=== PATIENT | male | born 1975 | race Caucasian/White ===

== ENCOUNTER → 2019-01-26 | Outpatient (CLI) | payer OTHER ==
--- NOTE | 2019-01-26 08:10 | US ---
EXAMINATION TYPE: US liver DATE OF EXAM: 01/26/2019 COMPARISON: NONE CLINICAL HISTORY: R74.8 Abnormal LFTS. EXAM MEASUREMENTS: Liver Length: 16.0 cm Gallbladder Wall: 0.2 cm CBD: 0.5 cm Right Kidney: 11.5 x 5.1 x 5.2 cm Pancreas: Obscured by bowel gas Liver: Increased attenuation, several hypoechoic areas adjacent to gallbladder and farrukh hepatis pro bable focal fatty sparing. Finding of increased attenuation limits evaluation for hepatic masses. Gallbladder: wnl Evidence for sonographic Espitia's sign: no CBD: wnl Right Kidney: wnl IMPRESSION: 1. Sonographic findings most commonly related to hepatic steatosis. Correlate with liver function zachary t results. Geographic hypoechoic areas around the gallbladder are in a typical distribution for focal fatty sparing. 2. No sonographic evidence of cholelithiasis nor acute cholecystitis. 3. Obscuration of the pancreas by overlying bowel gas.
== END | disposition home or self-care (01) ==
LOC: RADUSWWP 06:56
PROVIDERS: ATTEND Family Medicine
DX: R74.8 Abnormal levels of other serum enzymes (principal)
CPT/HCPCS: 76705

== ENCOUNTER → 2019-03-01 | Outpatient (CLI) | payer OTHER ==
--- NOTE | 2019-03-01 12:44 | CONS ---
CONSULTATION DATE OF SERVICE: 03/01/2019 This 43-year-old gentleman has been evaluated in sleep center for obstructive sleep apnea-hypopnea syndrome. HISTORY OF PRESENT ILLNESS/SLEEP-WAKE EVALUATION: Patient has been diagnosed with obstructive sleep apnea-hypopnea syndrome around 6 [place]; at that time, he was in [place]. We don't have results of previous home sleep study. Patient never had polysomnogram done and never had CPAP titration. Since that time patient was started on treatment with CPAP and he is trying to use his equipment. He significantly increased his weight for the last 5 years from around 170 pounds to 226 pounds today, which is more than 50 pounds. His sleep schedule on weekdays is from 10 p.m. to midnight until 6 a.m. and on the weekend he goes to bed in the range from 10 p.m. to 2 a.m. and he wakes up around 7 to 8 a.m. No problems with falling asleep, although he has TV set in bedroom. He wakes up from sleep 2 times. In the morning, patient wakes up tired, has difficulties to pay attention, falling asleep during the day, worrying about his sleep, has problems with memory, concentration and irritability. He may take nap around 2 p.m. on weekends. During the week, he does not have time to do any naps. [place] Sleepiness Scale is 3. PAST MEDICAL HISTORY: Positive for hypertension, hypertriglyceridemia. PAST SURGICAL HISTORY: Cyst removed from the back. MEDICATIONS: The patient takes 2 medications for blood pressure and medication for triglycerides. He does not remember name of medications. SOCIAL HISTORY: Positive for smoking for about 25 years, about 10 cigarettes a day. Presently, he is trying to quit smoking. Alcohol consumption: Occasional. FAMILY HISTORY: Hypertension, heart problems, arthritis, snoring, mental illness. REVIEW OF SYSTEMS: Awakenings from sleep, tiredness and sleepiness during the day even while using his CPAP equipment. PHYSICAL EXAMINATION: During physical exam, gentleman without distress. VITAL SIGNS: BP 180/107, HR 76, RR 16, height 5 feet 8 inches, weight 226 pounds, body mass index 34.3, temperature 98.5, oxygen saturation at room air 96%. HEENT: PERRLA, EOMI. Oropharynx extremely low position of soft palate. Mallampati 4. Some restriction of nasal breathing. Wide neck 17 inches in circumference. NECK: Supple, no JVD. Thyroid is not palpable. LUNGS: Clear to percussion and to auscultation. Good air exchange. No wheezing or rhonchi. HEART: S1, S2 regular. No murmurs, gallops, or rubs. ABDOMEN: Obese. EXTREMITIES: No clubbing or cyanosis. [employer]: Awake, alert, and oriented X3. Cranial nerves 2 to 7 intact. There is no fasciculation or atrophy. noted. No focal deficits observed. IMPRESSION: 1. History of obstructive sleep apnea for about 6 years diagnosed in [place]. Since that time, patient increased weight on more than 50 pounds. Sleepiness during the day and difficulties to pay attention, problems with memory and concentration. Extremely low position of soft palate, Mallampati 4, wide neck, obstructive sleep apnea-hypopnea syndrome. 2. Obesity, body mass is 34.3. 3. Hypertension. 4. Hyperlipidemia. 5. Status post cyst removed from the back. PLAN: 1. Polysomnography for evaluation of patient's breathing during sleep. 2. CPAP/BiPAP titration if sleep study confirms obstructive sleep apnea-hypopnea syndrome. 3. Preferable position during sleep on the side. 4. No driving if patient feels any sleepiness. 5. I will see patient for follow up visit to explain results of testing and following plan. Thank you very much for referring this patient for consultation. Sincerely, Freddy Gambino MD, PhD, FAASM Diplomat of [employer] Office Support of [facility] [place] MMODL / IJN: [id number] / [facility]
== END | disposition home or self-care (01) ==
LOC: SLEEP 11:05
PROVIDERS: ATTEND Internal Medicine
DX: E66.9 Obesity, unspecified (principal); I10 Essential (primary) hypertension; E78.5 Hyperlipidemia, unspecified; Z87.09 Personal history of other diseases of the respiratory system; Z68.34 Body mass index [BMI] 34.0-34.9, adult; Z98.890 Other specified postprocedural states; Z87.891 Personal history of nicotine dependence
CPT/HCPCS: 99211

== ENCOUNTER 2020-05-12 08:58 | Emergency (ER) | payer OTHER ==
[2020-05-12 09:06] VITALS: RESP 18
[2020-05-12] MEDS ORDERED: hydrALAZINE HCL 20 MG/ML 1 ML VIAL IVP STA ×2 (09:25→11:00)
--- NOTE | 2020-05-12 09:27 | ED ---
General Adult HPI - General Chief complaint: Recheck/Abnormal Lab/Rx Stated complaint: elevated BP, ear ache Time Seen by Provider: 05/12/20 09:18 Source: patient, RN notes reviewed Mode of arrival: ambulatory Limitations: no limitations - History of Present Illness Initial comments: Patient's a 44-year-old male presented to the emergency room today with chief complaint of right-sided ear pain and started yesterday. He does admit that he went to his family doctor to have it checked today with his blood pressure was elevated was directed here to the emergency room. He does admit that he takes lisinopril 20 mg daily. He states he has not missed any doses and he did take it this morning. Patient does admit that he is having pain to the right ear. He does admit to a mild headache. Patient denies any other complaints or symptoms at this time. Patient denies any recent fever, chills, shortness of breath, chest pain, back pain, abdominal pain, nausea or vomiting, visual changes, or any other complaints. - Related Data Home Medications Medication Instructions Recorded Confirmed Gemfibrozil [Lopid] 600 mg PO BID 05/12/20 05/12/20 lisinopriL [Prinivil] 20 mg PO DAILY 05/12/20 05/12/20 Previous Rx's Medication Instructions Recorded Amoxicillin/Potassium Clav 1 each PO Q12HR #20 tab 05/12/20 [Augmentin 875-125 Tablet] Ibuprofen [Motrin] 600 mg PO Q6HR PRN #30 day 05/12/20 Allergies Allergy/AdvReac Type Severity Reaction Status Date / Time bismuth subsalicylate Allergy Rash/Hives Verified 05/10/17 22:16 [From Pepto-Bismol] Review of Systems ROS Statement: Those systems with pertinent positive or pertinent negative responses have been documented in the HPI. ROS Other: All systems not noted in ROS Statement are negative. Past Medical History Past Medical History: Hyperlipidemia, Hypertension Additional Past Medical History / Comment(s): sleep apnea History of Any Multi-Drug Resistant Organisms: None Reported Past Surgical History: Hernia Repair Additional Past Surgical History / Comment(s): cysts to back Past Anesthesia/Blood Transfusion Reactions: No Reported Reaction Past Psychological History: No Psychological Hx Reported Smoking Status: Current every day smoker Past Alcohol Use History: Occasional Past Drug Use History: Marijuana - Past Family History Mother Family Medical History: CVA/TIA General Exam - General Exam Comments Initial Comments: General: The patient is awake and alert, in no distress, and does not appear acutely ill. Eye: extra-ocular movements are intact. There is normal conjunctiva bilaterally. No signs of icterus. Ears, nose, mouth and throat: There are moist mucous membranes and no oral lesions. TMs are clear bilaterally. Neck: The neck is supple Cardiovascular: There is a regular rate and rhythm. No murmur, rub or gallop is appreciated. Respiratory: Lungs are clear to auscultation, respirations are non-labored, breath sounds are equal. No wheezes, stridor, rales, or rhonchi. Musculoskeletal: Normal ROM, no tenderness. Strength 5/5. Sensation intact. Pulses equal bilaterally 2+. Neurological: A&O x 3. CN II-XII intact, There are no obvious motor or sensory deficits. Coordination appears grossly intact. Speech is normal. Skin: Skin is warm and dry and no rashes or lesions are noted. Psychiatric: Cooperative, appropriate mood & affect, normal judgment. Limitations: no limitations Course Vital Signs 05/12/20 05/12/20 05/12/20 09:03 10:22 11:00 Temperature 98.3 F Pulse Rate 67 Respiratory 18 Rate Blood Pressure 213/111 181/104 194/116 O2 Sat by Pulse 100 Oximetry 05/12/20 05/12/20 11:13 11:21 Temperature Pulse Rate 78 Respiratory 18 Rate Blood Pressure 188/102 167/96 O2 Sat by Pulse Oximetry EKG Findings - EKG Comments: EKG Findings:: EKG performed: 945. Normal sinus rhythm at [address] interval 196. QRS 96. QT/QTc 394/413. No acute ST changes. Medical Decision Making - Medical Decision Making Case was discussed with attending physician Dr. Harrington. Patient does have elevated white count here in emergency room. His exam shows no evidence of acute otitis media at this time. He does not pain just started yesterday. CT of the head was unremarkable. He did have a elevated blood pressure in the emergency room. He does admit that his morning medication. He was given doses of hydralazine which has improved his blood pressure. At this time patient's doing well. He admits that pain is relieved after dose of Toradol. He is feeling comfortable. Will be discharged home to follow-up with his family physician also given information for ENT. Advised to return here to the ER if any symptoms increase or worsen or for any other concerns. - Lab Data Result diagrams: 05/12/20 09:46 05/12/20 09:46 Lab Results 05/12/20 05/12/20 05/12/20 Range/Units 09:46 09:46 09:46 WBC 16.6 H (3.8-10.6) k/uL RBC 6.28 H (4.30-5.90) m/uL Hgb 19.8 H* (13.0-17.5) gm/dL Hct 56.4 H (39.0-53.0) % MCV 89.7 (80.0-100.0) fL MCH 31.5 (25.0-35.0) pg MCHC 35.1 (31.0-37.0) g/dL RDW 13.2 (11.5-15.5) % Plt Count 198 (150-450) k/uL MPV 7.3 Neutrophils % 78 % Lymphocytes % 11 % Monocytes % 7 % Eosinophils % 2 % Basophils % 1 % Neutrophils # 13.0 H (1.3-7.7) k/uL Lymphocytes # 1.9 (1.0-4.8) k/uL Monocytes # 1.1 H (0-1.0) k/uL Eosinophils # 0.3 (0-0.7) k/uL Basophils # 0.2 (0-0.2) k/uL Sodium 142 (137-145) mmol/L Potassium 4.0 (3.5-5.1) mmol/L Chloride 105 (98-107) mmol/L Carbon Dioxide 24 (22-30) mmol/L Anion Gap 13 mmol/L BUN 9 (9-20) mg/dL Creatinine 0.97 (0.66-1.25) mg/dL Est GFR (CKD-EPI)AfAm >90 (>60 ml/min/1.73 sqM) Est GFR (CKD-EPI)NonAf >90 (>60 ml/min/1.73 sqM) Glucose 100 H (74-99) mg/dL Calcium 10.6 H (8.4-10.2) mg/dL Troponin I <0.012 (0.000-0.034) ng/mL Disposition Clinical Impression: Elevated blood pressure reading, Right ear pain Disposition: HOME SELF-CARE Condition: Good Instructions (If sedation given, give patient instructions): Hypertension (ED) Additional Instructions: Please use medications as prescribed and follow-up with family physician and ENT as discussed over the next 2 days. Return here to emergency room for any other concerns. Prescriptions: Amoxicillin/Potassium Clav [Augmentin 875-125 Tablet] 1 each PO Q12HR #20 tab Ibuprofen [Motrin] 600 mg PO Q6HR PRN #30 day PRN Reason: Pain Is patient prescribed a controlled substance at d/c from ED?: No Referrals: Ravinder Quintero MD [Primary Care Provider] - 1-2 days Time of Disposition: 12:00
[2020-05-12 10:07] LABS: Basophils # (A) 0.2 k/uL (0-0.2); Basophils % (A) 1 %; Eosinophils # (A) 0.3 k/uL (0-0.7); Eosinophils % (A) 2 %; Lymphocytes # (A) 1.9 k/uL (1.0-4.8); Lymphocytes % (A) 11 %; MCH 31.5 pg (25.0-35.0); MCHC 35.1 g/dL (31.0-37.0); MCV 89.7 fL (80.0-100.0); Mean Platelet Volume 7.3; Monocytes # (A) 1.1 k/uL (0-1.0); Monocytes % (A) 7 %; Neutrophils % (A) 78 %; Platelet Count 198 k/uL (150-450); RBC 6.28 m/uL (4.30-5.90); RDW 13.2 % (11.5-15.5); WBC 16.6 k/uL (3.8-10.6)
[2020-05-12 10:19] LABS: HCT 56.4 % (39.0-53.0); HGB 19.8 gm/dL (13.0-17.5)
[2020-05-12 10:22] LABS: African American GFR (CKD) >90 (>60 ml/min/1.73 sqM); Anion Gap 13 mmol/L; Blood Urea Nitrogen 9 mg/dL (9-20); Calcium 10.6 mg/dL (8.4-10.2); Carbon Dioxide 24 mmol/L (22-30); Chloride 105 mmol/L (98-107); Glucose 100 mg/dL (74-99); Non-African American GFR(CKD) >90 (>60 ml/min/1.73 sqM); Sodium 142 mmol/L (137-145)
--- NOTE | 2020-05-12 11:00 | CT ---
EXAMINATION TYPE: CT brain wo con DATE OF EXAM: 05/12/2020 COMPARISON: None HISTORY: right side ear pain, high blood pressure CT DLP: 1060.[address] of the brain was performed. The ventricles, basal cisterns and sulci overlying the cerebral convexities demonstrate a normal appe arance. There is no evidence for intracranial hemorrhage or sulcal effacement. No mass effects are seen. Osseous calvarium is intact. If symptoms persist consider MRI as clinically warranted. IMPRESSION: 1. No acute intracranial process is seen at this time.
[2020-05-12] MEDS ORDERED: KETOROLAC 15 MG/ML 1 ML VIAL IVP STA (11:07)
[2020-05-12 11:14] VITALS: PULSE 78
[2020-05-12] MEDS ORDERED: SODIUM CHLORIDE 0.9% 500 ML 500 ML IV STA (11:16)
[2020-05-12 12:22] VITALS: BP 147/88; TEMP 98.4
== END 2020-05-12 12:22 | disposition home or self-care (01) ==
LOC: EC 08:58
DX: H92.01 Otalgia, right ear (principal); I10 Essential (primary) hypertension; E78.5 Hyperlipidemia, unspecified; F17.200 Nicotine dependence, unspecified, uncomplicated; Z79.899 Other long term (current) drug therapy; Z88.8 Allergy status to other drugs, medicaments and biological substances
CPT/HCPCS: 36415; 93005; 80048; 84484; 85025; 70450; 99284; 96374; 96375; 96376; 96361; J0360; J1885

== ENCOUNTER 2021-10-06 11:05 | Emergency (ER) | payer OTHER ==
[2021-10-06 11:10] VITALS: BP 191/103; PULSE 82; RESP 18; TEMP 98.7
[2021-10-06] MEDS ORDERED: LIDOCAINE 1% INJ 10MG/ML (5 ML VIAL-PF) SQ STA (11:37)
[2021-10-06] MEDS ORDERED: TETANUS-DIPHTHERIA TOX (PF) 0.5 ML VIAL IM ONE (11:39)
--- NOTE | 2021-10-06 11:43 | ED ---
Wound/Laceration HPI - General Chief Complaint: Wound/Laceration Stated Complaint: finger lac Time Seen by Provider: 10/06/21 11:23 Source: patient Mode of arrival: ambulatory Limitations: no limitations - History of Present Illness Initial Comments: Patient is a 46-year-old male who presents to the emergency room with complaints of a laceration to left index finger which occurred when he was at the store earlier today and picked up a hatchet which slipped out of his hand cutting his left index finger. Bleeding was controlled at the time of the event with significant pressure. He reports that the hatchet was new and the protective cover of the blade fell off of the hatchet. He states he is unsure when his last tetanus was. He has a past medical history significant for hypertension, hyperlipidemia, sleep apnea and he is hard of hearing. He denies any other complaints or concerns at this time. - Related Data Home Medications Medication Instructions Recorded Confirmed gemfibroziL [Lopid] 600 mg PO BID 05/12/20 05/12/20 lisinopriL [Prinivil] 20 mg PO DAILY 05/12/20 05/12/20 Previous Rx's Medication Instructions Recorded Amoxicillin/Potassium Clav 1 each PO Q12HR #20 tab 05/12/20 [Augmentin 875-125 Tablet] Ibuprofen [Motrin] 600 mg PO Q6HR PRN #30 day 05/12/20 Allergies Allergy/AdvReac Type Severity Reaction Status Date / Time bismuth subsalicylate Allergy Rash/Hives Verified 10/06/21 11:10 [From Pepto-Bismol] Review of Systems ROS Statement: Those systems with pertinent positive or pertinent negative responses have been documented in the HPI. ROS Other: All systems not noted in ROS Statement are negative. Past Medical History Past Medical History: Hyperlipidemia, Hypertension Additional Past Medical History / Comment(s): sleep apnea History of Any Multi-Drug Resistant Organisms: None Reported Past Surgical History: Hernia Repair Additional Past Surgical History / Comment(s): cysts to back Past Anesthesia/Blood Transfusion Reactions: No Reported Reaction Past Psychological History: No Psychological Hx Reported Smoking Status: Current every day smoker Past Alcohol Use History: Occasional Past Drug Use History: Marijuana - Past Family History Mother Family Medical History: CVA/TIA General Exam Limitations: no limitations General appearance: alert, in no apparent distress Head exam: Present: atraumatic, normocephalic, normal inspection Eye exam: Present: normal appearance, PERRL, EOMI. Absent: scleral icterus, conjunctival injection, periorbital swelling ENT exam: Present: mucous membranes moist Respiratory exam: Absent: respiratory distress, accessory muscle use Left Hand Wrist exam: Present: full ROM, tenderness, swelling, laceration. Absent: ecchymosis, deformity, dislocation, nail avulsion Vascular: Absent: vascular compromise Neurological exam: Present: alert, oriented X3, CN II-XII intact Psychiatric exam: Present: normal affect, normal mood Skin exam: Present: other (Laceration left index finger approximately 1.5 cm at the PIP) Course Vital Signs 10/06/21 11:07 Temperature 98.7 F Pulse Rate 82 Respiratory 18 Rate Blood Pressure 191/103 O2 Sat by Pulse 97 Oximetry - Reevaluation(s) Reevaluation #1: X-ray negative for fracture or foreign body. Wound cleansed. Sutures 3 placed C procedure for details. Tolerated well. No indication for antibiotics. Wound care discussed. Time: 13:03 Procedures - Laceration Laceration #1 Indication: laceration Site: hand (left index finger) Description: linear Depth: simple, single layer Anesthetic Used: lidocaine 1% Anesthesia Technique: local infiltration Pre-repair: irrigated extensively Type of Sutures: nylon Size of Sutures: 4-0 Number of Sutures: 3 Technique: simple, interrupted Patient Tolerated Procedure: well Medical Decision Making - Medical Decision Making Due to mechanism of injury will check x-ray for foreign objects and fracture. We will update tetanus vaccine and plan for suture of laceration after negative x- ray. Patient denies any analgesic need at this time. - Radiology Data Radiology results: report reviewed, image reviewed Left index finger x-ray : No acute fracture or dislocation Disposition Clinical Impression: Laceration Disposition: HOME SELF-CARE Condition: Stable Instructions (If sedation given, give patient instructions): Care For Your Stitches (ED), Laceration (ED) Additional Instructions: Keep laceration clean and dry. Return to emergency room or primary care provider in 7-10 days for suture removal. Utilize Motrin or Tylenol as needed for pain. See medical attention as appropriate for any signs or symptoms of infection. Please return to the Emergency Department if symptoms worsen or any other concerns. Is patient prescribed a controlled substance at d/c from ED?: No Referrals: Leon,Ravinder, MD [Primary Care Provider] - 1-2 days Time of Disposition: 13:07
[2021-10-06] MEDS ORDERED: DIPH,PERTUS(ACELL)TETVAC-LF 0.5 ML VIAL IM ONE (11:45)
--- NOTE | 2021-10-06 12:31 | XR ---
EXAMINATION TYPE: XR finger LT DATE OF EXAM: 10/06/2021 COMPARISON: NONE INDICATION: Laceration TECHNIQUE: 3 views of the left third finger. FINDINGS: Tiny osteophytosis of the third proximal interphalangeal joint. No definite acute fracture line ident ified. No soft tissue gas. IMPRESSION: No acute fracture or dislocation.
== END 2021-10-06 13:30 | disposition home or self-care (01) ==
LOC: EC 11:05
DX: S61.211A Laceration without foreign body of left index finger without damage to nail, initial encounter (principal); F17.200 Nicotine dependence, unspecified, uncomplicated; E78.5 Hyperlipidemia, unspecified; I10 Essential (primary) hypertension; Z23 Encounter for immunization; Z79.899 Other long term (current) drug therapy; W01.0XXA Fall on same level from slipping, tripping and stumbling without subsequent striking against object, initial encounter; Y92.512 Supermarket, store or market as the place of occurrence of the external cause
CPT/HCPCS: 12001 ×2; 99283 ×2; 90471 ×2; 73140; 90715; J2001